=== PATIENT | female | born 1955 | race Hispanic/Latino ===

== ENCOUNTER → 2024-07-08 | Outpatient (CLI) | payer MEDICARE | END | disposition home or self-care (01) | LOC: RAH 02-04 13:33 | PROVIDERS: ATTEND Family Medicine | DX: Z12.31 Encounter for screening mammogram for malignant neoplasm of breast (principal); R92.323 Mammographic fibroglandular density, bilateral breasts | CPT/HCPCS: 77067 ==

== ENCOUNTER → 2024-07-13 | Outpatient (CLI) | payer MEDICARE | END | disposition home or self-care (01) | LOC: RAH 07:23 | PROVIDERS: ATTEND Family Medicine | DX: Z78.0 Asymptomatic menopausal state (principal) | CPT/HCPCS: 77080 ==

== ENCOUNTER → 2025-07-13 | Outpatient (CLI) | payer MEDICARE | END | disposition home or self-care (01) | LOC: RAH 06-23 13:30 | PROVIDERS: ATTEND Family Medicine | DX: Z12.31 Encounter for screening mammogram for malignant neoplasm of breast (principal) | CPT/HCPCS: 77067 ==

== ENCOUNTER → 2025-09-23 | Outpatient (CLI) | payer MEDICARE ==
--- NOTE | 2025-09-25 06:42 | HMCIMG ---
BILATERAL BREAST ULTRASOUND: CLINICAL HISTORY: Follow-up for moderately dense breasts from mammogram from 07/13/2025. Finding: Real-time examination of the both breasts demonstrates heterogeneous echotexture throughout both the breasts without evidence of focal solid or cystic masses. IMPRESSION: Moderately heterogeneously dense breasts with no solid or cystic masses seen. I would recommend annual mammography with tomography with bilateral breast sonogram. FINAL ASSESSMENT: ACR: BI-RAD - 1. Negative Mammogram.
== END | disposition home or self-care (01) ==
LOC: RAH 10:12
PROVIDERS: ATTEND Family Medicine
DX: R92.333 Mammographic heterogeneous density, bilateral breasts (principal); R92.0 Mammographic microcalcification found on diagnostic imaging of breast